=== PATIENT | male | born 1940 | race Caucasian/White ===

== ENCOUNTER → 2020-12-19 | Outpatient (CLI) | payer MEDICARE ==
[~2020-12-19] MED LIST: ACCUPRIL10 MG PO; ANTIVERT 12.512.5 MG PO; ASPIRIN81 MG PO; CILOSTAZOL100 MG PO; NITROSTAT 0.40.4 MG SL; PANTOPRAZOLE SO40 MG PO; PLAVIX 75 MG TA75 MG PO; REPATHA INJ; TOPROL XL100 MG PO; ZYLOPRIM 100 M100 MG PO
== END ==
LOC: KOH-I 12-06 08:30
DX: K59.01 Slow transit constipation (principal); M54.50 Low back pain, unspecified; I73.89 Other specified peripheral vascular diseases; I10 Essential (primary) hypertension; R53.83 Other fatigue; R91.8 Other nonspecific abnormal finding of lung field
CPT/HCPCS: 71250; 74176